=== PATIENT | male | born 1970 | race Caucasian/White ===

== ENCOUNTER → 2025-08-24 | Outpatient (CLI) | payer BC ==
[~2025-08-24] MED LIST: CODACE30 PO; HYOSCYAMINE0.125 MG SL; LOPERAMIDE212 PO; MESA400ER PO; Percocet 5-3251 EACH PO
[2025-08-24 18:48] LABS: U Amphetamine Screen Not Detected; U Barbiturate Screen Not Detected; U Benzodiazapine Screen Not Detected; U Buprenorphine Screen Not Detected; U Cannabinoids Screen DETECTED; U Cocaine Screen Not Detected; U Methadone Screen Not Detected; U Methamphetamine Screen Not Detected; U Opiates Screen DETECTED; U Oxycodone Screen Not Detected; U Phencyclidine Screen Not Detected
== END ==
LOC: LAB SHORT 17:40 → LAB 17:40
PROVIDERS: Nurse Practitioner Family
DX: Z79.891 Long term (current) use of opiate analgesic (principal)